=== PATIENT | male | born 2000 | race African-American/Black ===

== ENCOUNTER 2023-04-24 21:46 | Inpatient (IN) | payer MEDICAID, OTHER ==
[~2023-04-24] VITALS: Ht 165.1 cm; Wt 67.8 kg
[2023-04-24] MEDS: POTASSIUM CHL 20MEQ/100ML 100 ML IV ONE (01:30)
[2023-04-24 22:40] VITALS: PULSE 80; RESP 16; O2SAT 98
[2023-04-24] MEDS: ONDANSETRON HCL 4 MG/2 ML VIAL IV ONE (23:00)
[2023-04-24] MEDS: PANTOPRAZOLE 80 MG in SODIUM CHL 0.9% 100 ML IV ONE (23:00)
[2023-04-24] MEDS: PANTOPRAZOLE 40mg/50ML NS AE 50 ML IV ONE (23:00)
[2023-04-24] MEDS: PANTOPRAZOLE 40 MG/10 ML VIAL INJ IV ONE (23:01)
[2023-04-24] MEDS: SODIUM CHLORIDE 0.9% 2,150 ML IV ONE (23:01)
[2023-04-24 23:15] LABS: Basophils # (auto) 0 10 ^3/uL (0-0.2); Basophils % (auto) 0.1 % (0.0-2.0); Eosinophils # (auto) 0 10 ^3/uL (0-0.8); Eosinophils % (auto) 0.1 % (0.0-7.0); Hematocrit 44.1 % (41.0-53.0); Hemoglobin 15.8 g/dL (13.5-17.5); Lymphocytes # (auto) 0.7 10 ^3/uL (0.4-5.4); Lymphocytes % (auto) 3.7 % (10.0-50.0); Mean Corpuscular Hemoglobin 29.3 pg (28.0-32.0); Mean Corpuscular Hgb Conc. 35.9 g/dL (32.0-36.0); Mean Corpuscular Volume 81.7 fL (80.0-100.0); Monocytes # (auto) 0.8 10 ^3/uL (0-1.3); Monocytes % (auto) 4.4 % (0.0-12.0); Neutrophils # (auto) 16.6 10 ^3/uL (1.6-8.6); Neutrophils % (auto) 91.7 % (37.0-80.0); Red Cell Distribution Width 13.8 % (11.8-14.3); White Blood Cell 18.1 10^3/uL (4.4-10.8)
[2023-04-24 23:28] LABS: Alanine Aminotransferase 83 U/L (7-40); Albumin 4.5 g/dL (3.2-4.8); Alkaline Phosphatase 91 U/L (46-116); Anion Gap 19.00001 (5-15); Aspartate Aminotransferase 188 U/L (13-40); Bilirubin, Total 1.3 mg/dL (0.2-1.0); Calcium 8.8 mg/dL (8.7-10.4); Carbon Dioxide 38 mmol/L (20-30); Chloride < 50 mmol/L (98-107); Glucose 119 mg/dL (74-106); Lipase 40 U/L (12-53); Magnesium 2.9 mg/dL (1.6-2.6); Potassium 3.2 mmol/L (3.5-5.1)
[2023-04-24 23:36] LABS: BUN/Creatinine Ratio 34.3 (10.0-20.0)
[2023-04-24 23:39] LABS: Blood Urea Nitrogen 191 mg/dL (9-23); Sodium 107 mmol/L (136-145)
[2023-04-24 23:40] LABS: Creatine Kinase IFCC 8038 U/L (46-171)
[2023-04-24] MEDS ORDERED: VANCOMYCIN PER PHARMACY 0 MG IV SCH (23:45)
[2023-04-24 23:53] LABS: Blood Alcohol < 3.0 mg/dL (<10)
[2023-04-25] MEDS: SODIUM CHLORIDE 0.9% 2,150 ML IV ONE (00:10)
[2023-04-25 00:47] LABS: Base Excess 12.4 mmol/L (-2.0-2.0)
[2023-04-25] MEDS: SODIUM CHL 3% 500 ML IV ONE (01:08)
[2023-04-25] MEDS: PIPERACILLIN-TAZOB 3.375GM 100 ML IV ONE (01:08)
[2023-04-25 01:10] LABS: INR 1.02 (0.9-1.15); Prothrombin Time 10.9 sec (9.3-11.8)
[2023-04-25 01:29] LABS: Urine Epithelial Cast None Seen /hpf (<5)
[2023-04-25 01:50] LABS: Amphetamine Screen, Urine Neg (NEGATIVE); Barbiturate Scree,Urine Neg (NEGATIVE); Benzodiazephine Screen, Urine Neg (NEGATIVE); Cocaine Screen, Urine Neg (NEGATIVE)
[2023-04-25 01:51] LABS: Cannabinoid Screen, Urine Pos (NEGATIVE); Opiate Scree,Urine Neg (NEGATIVE); Phencyclidine Screen, Urine Neg (NEGATIVE)
[2023-04-25] MEDS: SODIUM BICARB 8.4% 50Meq/50ml SYR Vial IV ONE (02:05)
[2023-04-25] MEDS: IOHEXOL 350 MG/ML 100ML IJ ONE (02:06)
[2023-04-25 02:31] LABS: Urine Bacteria NONE SEEN /hpf (None Seen); Urine Blood 3+ /uL (Negative); Urine Clarity Clear (Clear); Urine Color Yellow (Yellow); Urine Hyaline Cast FEW /lpf (0 - 2); Urine Protein, UAD 1+ (Negative); Urine Urobilinogen Normal (Negative); Urine WBC 4 /hpf (0 - 3); Urine pH 5.5 (5.0-8.0)
[2023-04-25 03:05] LABS: Lactic Acid w/Reflex 3.2 mmol/L (0.4-2.0)
[2023-04-25] MEDS: VANCOMYCIN 1GM/200ML 200 ML IV SCH (04:08)
[2023-04-25] MEDS: metroNIDAZOLE 500MG/100ML 100 ML IV ONE (06:51)
[2023-04-25 07:56] LABS: Alanine Aminotransferase 63 U/L (7-40); Albumin 3.2 g/dL (3.2-4.8); Alkaline Phosphatase 63 U/L (46-116); Anion Gap 15 (5-15); Aspartate Aminotransferase 140 U/L (13-40); Calcium 7.5 mg/dL (8.5-10.1); Carbon Dioxide 36 mmol/L (20-30); Glucose 67 mg/dL (74-106); Potassium 3.6 mmol/L (3.5-5.1)
[2023-04-25 07:57] LABS: Bilirubin, Total 1.1 mg/dL (0.2-1.0); Total Protein 4.8 g/dL (5.7-8.2)
[2023-04-25 08:04] LABS: BUN/Creatinine Ratio 36.1 (10.0-20.0)
[2023-04-25 08:23] LABS: Blood Urea Nitrogen 172 mg/dL (9-23); Chloride 65 mmol/L (98-107); Sodium 116 mmol/L (136-145)
[2023-04-25 12:24] LABS: Hematocrit 37.1 % (41.0-53.0); Mean Corpuscular Hemoglobin 29.3 pg (28.0-32.0); Mean Corpuscular Hgb Conc. 34.9 g/dL (32.0-36.0); Mean Corpuscular Volume 83.9 fL (80.0-100.0); Red Blood Cells 4.42 10^6/uL (4.5-5.90); White Blood Cell 15.9 10^3/uL (4.4-10.8)
[2023-04-25 12:39] LABS: Basophils % (manual) 0 (0.0-2.0); Blast Cells 0; Eosinophils % (manual) 0 (0-7); Metamyelocytes % 0; Myelocytes % 0; Promyelocytes % 0; Reactive Lymphocytes 0
[2023-04-25 12:58] LABS: Alanine Aminotransferase 63 U/L (7-40); Albumin 3.5 g/dL (3.2-4.8); Alkaline Phosphatase 67 U/L (46-116); Anion Gap 18 (5-15); Aspartate Aminotransferase 137 U/L (13-40); BUN/Creatinine Ratio 29.3 (10.0-20.0); Bilirubin, Total 1.1 mg/dL (0.2-1.0); Calcium 7.6 mg/dL (8.7-10.4); Carbon Dioxide 32 mmol/L (20-30); Chloride 67 mmol/L (98-107); Glucose 77 mg/dL (74-106); Potassium 3.5 mmol/L (3.5-5.1); Total Protein 5.6 g/dL (5.7-8.2)
[2023-04-25 13:18] LABS: Blood Urea Nitrogen 134 mg/dL (9-23)
[2023-04-25 13:19] LABS: Sodium 117 mmol/L (136-145)
[2023-04-25 13:21] LABS: Band Neutrophils % (manual) 6; Lymphocytes % (manual) 2 (10.0-50.0); Monocytes % (manual) 3 (0-12); Platelet Estimate Adequate; RBC Morphology Normal
[2023-04-25] MEDS ORDERED: MORPHINE SULFATE INJ 2 MG/ml SYRG IV PRN (18:15)
[2023-04-25] MEDS ORDERED: NITROGLYCERIN 0.4 MG SL TAB SL PRN (18:15)
[2023-04-25 19:22] LABS: Hemoglobin 13.1 g/dL (13.5-17.5)
[2023-04-25] MEDS: OMNIPAQUE 12mg/ml 500ml ORAL SOLUTION PO ONE (19:23)
[2023-04-25 19:25] LABS: Hematocrit 37.5 % (41.0-53.0); Mean Corpuscular Hemoglobin 29.5 pg (28.0-32.0); Mean Corpuscular Volume 84.5 fL (80.0-100.0); Red Blood Cells 4.44 10^6/uL (4.5-5.90); Red Cell Distribution Width 14.1 % (11.8-14.3)
[2023-04-25 19:34] LABS: Potassium 3.1 mmol/L (3.5-5.1)
[2023-04-25 19:35] LABS: Anion Gap 14 (5-15); Calcium 8.3 mg/dL (8.7-10.4); Carbon Dioxide 34 mmol/L (20-30)
[2023-04-25 19:39] LABS: Basophils % (manual) 0 (0.0-2.0); Blast Cells 0; Eosinophils % (manual) 0 (0-7); Lymphocytes % (manual) 0 (10.0-50.0); Metamyelocytes % 0; Myelocytes % 0; Promyelocytes % 0; Reactive Lymphocytes 0; White Blood Cell 31.4 10^3/uL (4.4-10.8)
[2023-04-25 19:40] LABS: BUN/Creatinine Ratio 29.6 (10.0-20.0); Glucose 72 mg/dL (74-106)
[2023-04-25 19:49] LABS: Chloride 77 mmol/L (98-107); Sodium 125 mmol/L (136-145)
[2023-04-25 19:51] LABS: Blood Urea Nitrogen 111 mg/dL (9-23)
[2023-04-25 19:52] LABS: Band Neutrophils % (manual) 6; Monocytes % (manual) 6 (0-12)
[2023-04-25 19:53] LABS: Creatine Kinase IFCC 3412 U/L (46-171); Platelet Estimate Adequate
[2023-04-25] MEDS ORDERED: LORazepam 2MG/ML-1ML VIAL IV PRN (20:00)
[2023-04-25] MEDS: PANTOPRAZOLE 40 MG/10 ML VIAL INJ IV ONE (20:17)
[2023-04-25] MEDS ORDERED: DEXTROSE (50%) 50ML SYRG IV PRN (20:30)
[2023-04-25 20:53] LABS: Triglycerides 85 mg/dL (< 150)
[2023-04-25 20:54] LABS: LDL Cholesterol 25 mg/dL (< 100)
[2023-04-25 20:55] LABS: Cholesterol 77 mg/dL (< 200); HDL Cholesterol 31 mg/dL (40-59)
[2023-04-25 21:10] VITALS: PULSE 109; RESP 14; O2SAT 97
[2023-04-25] MEDS: D5W 5% 1,000 ML IV ONE (21:43)
[2023-04-25] MEDS ORDERED: MEROPENEM 1 GM in SODIUM CHL 0.9% 100 ML IV SCH (22:00)
[2023-04-25] MEDS: POTASSIUM CHL 20MEQ/100ML 100 ML IV ONE (22:02)
[2023-04-25] MEDS: DESMOPRESSIN ACET 4 MCG/1 ML AMPULE SUBCUT SCH (22:07)
[2023-04-25] MEDS: DESMOPRESSIN ACET 4 MCG/1 ML AMPULE ONE (22:07)
[2023-04-25] MEDS: LINEZOLID 600MG/300ML 300 ML IV SCH (22:41)
[2023-04-25 23:04] LABS: Chloride 77 mmol/L (98-107); Potassium 2.8 mmol/L (3.5-5.1); Sodium 124 mmol/L (136-145)
[2023-04-25 23:05] LABS: Anion Gap 13 (5-15); Calcium 8.5 mg/dL (8.7-10.4); Carbon Dioxide 34 mmol/L (20-30)
[2023-04-25] MEDS: MEROPENEM 1GM IVPB 100 ML IV SCH (23:09)
[2023-04-25 23:10] LABS: BUN/Creatinine Ratio 31.8 (10.0-20.0); Glucose 117 mg/dL (74-106)
[2023-04-25 23:24] LABS: Blood Urea Nitrogen 105 mg/dL (9-23)
[2023-04-26] MEDS: ACCU-CHEK COMFORT CURVE STRIP VI SCH (00:15)
[2023-04-26] MEDS: InsuLIN REG 1unit/0.01ml Soln (100units/ml) SC SCH (00:20)
[2023-04-26 02:37] LABS: Chloride 78 mmol/L (98-107); Potassium 2.9 mmol/L (3.5-5.1); Sodium 124 mmol/L (136-145)
[2023-04-26 02:38] LABS: Anion Gap 11 (5-15); Calcium 8.4 mg/dL (8.7-10.4); Carbon Dioxide 35 mmol/L (20-30)
[2023-04-26 02:43] LABS: BUN/Creatinine Ratio 36.9 (10.0-20.0); Glucose 102 mg/dL (74-106)
[2023-04-26 03:32] LABS: Blood Urea Nitrogen 110 mg/dL (9-23)
[2023-04-26 07:03] LABS: Potassium 2.7 mmol/L (3.5-5.1)
[2023-04-26 07:05] LABS: Calcium 8.7 mg/dL (8.5-10.1)
[2023-04-26 07:09] LABS: BUN/Creatinine Ratio 48.7 (10.0-20.0)
[2023-04-26 07:11] LABS: Albumin 3.6 g/dL (3.2-4.8)
[2023-04-26 07:12] LABS: Phosphorus 6.3 mg/dL (2.4-5.1)
[2023-04-26] MEDS: D5W 5% 1,000 ML IV ONE (09:15)
[2023-04-26] MEDS: DESMOPRESSIN ACET 4 MCG/1 ML AMPULE SUBCUT SCH ×2 (09:30→21:00)
[2023-04-26] MEDS ORDERED: POTASSIUM CHL 20MEQ/100ML 100 ML IV SCH (09:45)
[2023-04-26] MEDS ORDERED: MEROPENEM 1 GM in SODIUM CHL 0.9% 100 ML IV SCH (10:00)
[2023-04-26] MEDS: PANTOPRAZOLE 40 MG/10 ML VIAL INJ IV SCH (10:26)
[2023-04-26] MEDS: D5W 5% 1,000 ML IV SCH ×2 (10:27→17:15)
[2023-04-26 10:37] LABS: Chloride 80 mmol/L (98-107); Potassium 2.8 mmol/L (3.5-5.1); Sodium 128 mmol/L (136-145)
[2023-04-26 10:38] LABS: Anion Gap 12 (5-15); Carbon Dioxide 36 mmol/L (20-30)
[2023-04-26 10:39] LABS: Calcium 9.1 mg/dL (8.5-10.1)
[2023-04-26 10:43] LABS: Glucose 81 mg/dL (74-106)
[2023-04-26 10:44] LABS: BUN/Creatinine Ratio 38.9 (10.0-20.0); Blood Urea Nitrogen 93 mg/dL (9-23)
[2023-04-26 11:11] VITALS: PULSE 94; RESP 14; O2SAT 97
[2023-04-26] MEDS: DESMOPRESSIN ACET 4 MCG/1 ML AMPULE SUBCUT ONE (13:58)
[2023-04-26] MEDS: POTASSIUM CHL 20MEQ/100ML 100 ML IV SCH ×2 (13:59→21:33)
[2023-04-26 14:57] LABS: Chloride 83 mmol/L (98-107); Potassium 2.7 mmol/L (3.5-5.1); Sodium 128 mmol/L (136-145)
[2023-04-26 14:58] LABS: Anion Gap 7 (5-15); Calcium 8.9 mg/dL (8.5-10.1); Carbon Dioxide 38 mmol/L (20-30)
[2023-04-26 15:03] LABS: BUN/Creatinine Ratio 36.9 (10.0-20.0); Glucose 120 mg/dL (74-106)
[2023-04-26 15:17] LABS: Blood Urea Nitrogen 82 mg/dL (9-23)
[2023-04-26] MEDS: POTASSIUM EFFERVESENT TAB 25 MEQ GT ONE (17:14)
[2023-04-26 19:21] LABS: Anion Gap 8 (5-15); Carbon Dioxide 36 mmol/L (20-30); Chloride 87 mmol/L (98-107); Potassium 2.9 mmol/L (3.5-5.1); Sodium 131 mmol/L (136-145)
[2023-04-26 19:22] LABS: Calcium 8.8 mg/dL (8.5-10.1)
[2023-04-26 19:27] LABS: BUN/Creatinine Ratio 39.9 (10.0-20.0); Blood Urea Nitrogen 77 mg/dL (9-23); Glucose 111 mg/dL (74-106)
[2023-04-26 19:45] VITALS: PULSE 96; RESP 19; O2SAT 96
[2023-04-26] MEDS: MEROPENEM 1GM IVPB 100 ML IV SCH (22:00)
[2023-04-26 22:32] LABS: Basophils # (auto) 0 10 ^3/uL (0-0.2); Basophils % (auto) 0.1 % (0.0-2.0); Eosinophils # (auto) 0 10 ^3/uL (0-0.8); Eosinophils % (auto) 0.1 % (0.0-7.0); Hematocrit 29.1 % (41.0-53.0); Hemoglobin 9.9 g/dL (13.5-17.5); Lymphocytes # (auto) 0.4 10 ^3/uL (0.4-5.4); Lymphocytes % (auto) 2.1 % (10.0-50.0); Mean Corpuscular Hemoglobin 29.4 pg (28.0-32.0); Mean Corpuscular Hgb Conc. 34.1 g/dL (32.0-36.0); Monocytes # (auto) 0.6 10 ^3/uL (0-1.3); Monocytes % (auto) 3.6 % (0.0-12.0); Neutrophils # (auto) 16.7 10 ^3/uL (1.6-8.6); Neutrophils % (auto) 94.1 % (37.0-80.0); Red Blood Cells 3.38 10^6/uL (4.5-5.90); White Blood Cell 17.7 10^3/uL (4.4-10.8)
[2023-04-26 22:39] LABS: Chloride 91 mmol/L (98-107); Potassium 3.1 mmol/L (3.5-5.1); Sodium 132 mmol/L (136-145)
[2023-04-26 22:40] LABS: Anion Gap 6 (5-15); Carbon Dioxide 35 mmol/L (20-30)
[2023-04-26 22:41] LABS: Calcium 8.3 mg/dL (8.7-10.4)
[2023-04-26 22:46] LABS: Blood Urea Nitrogen 68 mg/dL (9-23); Glucose 99 mg/dL (74-106)
[2023-04-27 07:18] LABS: Anion Gap 4 (5-15); Calcium 8.3 mg/dL (8.7-10.4); Carbon Dioxide 33 mmol/L (20-30); Chloride 97 mmol/L (98-107); Potassium 3.5 mmol/L (3.5-5.1); Sodium 134 mmol/L (136-145)
[2023-04-27 07:24] LABS: Glucose 72 mg/dL (74-106)
[2023-04-27 07:25] LABS: Blood Urea Nitrogen 57 mg/dL (9-23)
[2023-04-27 07:38] LABS: Basophils # (auto) 0 10 ^3/uL (0-0.2); Basophils % (auto) 0.2 % (0.0-2.0); Eosinophils # (auto) 0 10 ^3/uL (0-0.8); Eosinophils % (auto) 0.2 % (0.0-7.0); Hematocrit 28.3 % (41.0-53.0); Hemoglobin 9.7 g/dL (13.5-17.5); Lymphocytes # (auto) 0.5 10 ^3/uL (0.4-5.4); Lymphocytes % (auto) 2.8 % (10.0-50.0); Mean Corpuscular Hgb Conc. 34.4 g/dL (32.0-36.0); Mean Corpuscular Volume 87.3 fL (80.0-100.0); Monocytes # (auto) 0.8 10 ^3/uL (0-1.3); Monocytes % (auto) 4.2 % (0.0-12.0); Neutrophils # (auto) 16.7 10 ^3/uL (1.6-8.6); Neutrophils % (auto) 92.6 % (37.0-80.0); Red Blood Cells 3.25 10^6/uL (4.5-5.90); Red Cell Distribution Width 14.1 % (11.8-14.3)
[2023-04-27] MEDS: ACETAMINOPHEN 325 MG TAB PO ONE (09:52)
[2023-04-27] MEDS: DESMOPRESSIN ACET 4 MCG/1 ML AMPULE SUBCUT SCH (11:11)
[2023-04-27 20:00] VITALS: BP 135/84; PULSE 89; RESP 18; TEMP 97.5
[2023-04-27 21:22] VITALS: PULSE 92; RESP 17; O2SAT 98
[2023-04-28 05:16] LABS: Basophils # (auto) 0 10 ^3/uL (0-0.2); Basophils % (auto) 0.1 % (0.0-2.0); Eosinophils # (auto) 0.3 10 ^3/uL (0-0.8); Eosinophils % (auto) 1.6 % (0.0-7.0); Hematocrit 25.7 % (41.0-53.0); Hemoglobin 8.8 g/dL (13.5-17.5); Lymphocytes # (auto) 0.8 10 ^3/uL (0.4-5.4); Lymphocytes % (auto) 4.1 % (10.0-50.0); Mean Corpuscular Hemoglobin 29.9 pg (28.0-32.0); Mean Corpuscular Hgb Conc. 34.4 g/dL (32.0-36.0); Monocytes # (auto) 1.1 10 ^3/uL (0-1.3); Monocytes % (auto) 5.3 % (0.0-12.0); Neutrophils % (auto) 88.9 % (37.0-80.0); Red Blood Cells 2.96 10^6/uL (4.5-5.90); Red Cell Distribution Width 14.2 % (11.8-14.3); White Blood Cell 20.2 10^3/uL (4.4-10.8)
[2023-04-28 05:51] LABS: Anion Gap 5 (5-15); Carbon Dioxide 30 mmol/L (20-30); Chloride 91 mmol/L (98-107); Sodium 126 mmol/L (136-145)
[2023-04-28 05:52] LABS: Calcium 8.1 mg/dL (8.7-10.4)
[2023-04-28 05:57] LABS: BUN/Creatinine Ratio 23.4 (10.0-20.0); Glucose 113 mg/dL (74-106)
[2023-04-28 06:31] LABS: Blood Urea Nitrogen 26 mg/dL (9-23)
[2023-04-28 08:11] VITALS: PULSE 96; RESP 23; O2SAT 100
[2023-04-28 09:50] VITALS: BP 130/58; PULSE 96; RESP 18; TEMP 100.3; O2SAT 94
[2023-04-28] MEDS ORDERED: THIAMINE 100mg/ml INJ (200mg/2ml VIAL) IV ONE (10:30)
[2023-04-28 11:04] LABS: Phosphorus 1.3 mg/dL (2.4-5.1)
[2023-04-28 11:40] LABS: Magnesium 1.1 mg/dL (1.6-2.6)
[2023-04-28] MEDS: POTASSIUM CHL 20MEQ/100ML 100 ML IV SCH (12:02)
[2023-04-28] MEDS: FLUCONAZOLE 200MG/100ML 100 ML IV SCH (12:13)
[2023-04-28 12:39] LABS: Urine Epithelial Cast None Seen /hpf (<5)
[2023-04-28 13:03] LABS: Protein, Urine 70.4 mg/dL (0.0-11.9)
[2023-04-28 13:05] LABS: Urine Bacteria NONE SEEN /hpf (None Seen); Urine Blood Negative /uL (Negative); Urine Clarity Clear (Clear); Urine Color Colorless (Yellow); Urine Protein, UAD 1+ (Negative); Urine Specific Gravity 1.013 (1.001-1.035); Urine Urobilinogen Normal (Negative); Urine WBC 4 /hpf (0 - 3); Urine pH 7.5 (5.0-8.0)
[2023-04-28 13:06] LABS: Creatinine, Urine 80.43 mg/dL (30.0-125.0); Urine Protein/Creatinine Ratio 0.88
[2023-04-28 13:09] LABS: Rapid Influenza A Negative (Negative); Rapid Influenza B Negative (Negative)
[2023-04-28 13:10] LABS: COVID19 ANTIGEN SOFIA FIA NEGATIVE (NEGATIVE)
[2023-04-28] MEDS ORDERED: GASTROGRAFIN 120 ML SOL ONE (14:14)
[2023-04-28] MEDS ORDERED: EZ-GAS II GRANULES (RADIOLOGY USE) PO ONE (14:19)
[2023-04-28 14:20] LABS: Chloride 93 mmol/L (98-107); Potassium 3.3 mmol/L (3.5-5.1); Sodium 127 mmol/L (136-145)
[2023-04-28 14:21] LABS: Anion Gap 4 (5-15); Calcium 8.2 mg/dL (8.5-10.1); Carbon Dioxide 30 mmol/L (20-30)
[2023-04-28 14:26] LABS: BUN/Creatinine Ratio 22.1 (10.0-20.0); Blood Urea Nitrogen 21 mg/dL (9-23); Glucose 83 mg/dL (74-106)
[2023-04-28 17:00] VITALS: BP 126/68; PULSE 91; RESP 19; TEMP 100.2; O2SAT 100
[2023-04-28] MEDS: ACETAMINOPHEN 325 MG TAB PO PRN (17:23)
[2023-04-28] MEDS: MAGNESIUM SULFATE 1GM/100ML 100 ML IV SCH (18:27)
[2023-04-28] MEDS: POTASSIUM EFFERVESENT TAB 25 MEQ PO ONE (18:51)
[2023-04-28] MEDS: ONDANSETRON HCL 4 MG/2 ML VIAL IV PRN (18:51)
[2023-04-28 20:00] VITALS: BP 135/84; PULSE 68; PULSE 89; RESP 18; TEMP 97.5; O2SAT 100
[2023-04-28 22:00] VITALS: BP 135/84; PULSE 89; RESP 18; TEMP 97.5; O2SAT 100
[2023-04-28 22:42] LABS: Magnesium 1.7 mg/dL (1.6-2.6)
[2023-04-28 22:43] LABS: Potassium 3.5 mmol/L (3.5-5.1)
[2023-04-29] VITALS (7 sets, daily range): BP systolic 124–142; BP diastolic 70–94; PULSE 92–111; RESP 17–19; TEMP 98–99.6; O2SAT 97–100
[2023-04-29] MEDS: POTASSIUM EFFERVESENT TAB 25 MEQ PO ONE ×2 (02:28→10:18)
[2023-04-29] MEDS: MAGNESIUM SULFATE 1GM/100ML 100 ML IV ONE (02:28)
[2023-04-29 06:53] LABS: Hematocrit 27.5 % (41.0-53.0); Hemoglobin 9.4 g/dL (13.5-17.5); Mean Corpuscular Hemoglobin 29.6 pg (28.0-32.0); Mean Corpuscular Hgb Conc. 34.3 g/dL (32.0-36.0); Mean Corpuscular Volume 86.5 fL (80.0-100.0); Red Blood Cells 3.18 10^6/uL (4.5-5.90); Red Cell Distribution Width 14.2 % (11.8-14.3); White Blood Cell 16.3 10^3/uL (4.4-10.8)
[2023-04-29 07:05] LABS: Alanine Aminotransferase 48 U/L (7-40); Albumin 3.2 g/dL (3.2-4.8); Alkaline Phosphatase 96 U/L (46-116); Anion Gap 6 (5-15); Aspartate Aminotransferase 41 U/L (13-40); BUN/Creatinine Ratio 13.5 (10.0-20.0); Bilirubin, Total 0.5 mg/dL (0.2-1.0); Blood Urea Nitrogen 13 mg/dL (9-23); Calcium 8.2 mg/dL (8.7-10.4); Carbon Dioxide 28 mmol/L (20-30); Chloride 96 mmol/L (98-107); Glucose 86 mg/dL (74-106); Magnesium 2.1 mg/dL (1.6-2.6); Phosphorus 1.1 mg/dL (2.4-5.1); Potassium 3.2 mmol/L (3.5-5.1); Sodium 130 mmol/L (136-145)
[2023-04-29 07:06] LABS: Total Protein 5.3 g/dL (5.7-8.2)
[2023-04-29 07:24] LABS: Basophils % (manual) 0 (0.0-2.0); Blast Cells 0; Promyelocytes % 0; Reactive Lymphocytes 0
[2023-04-29 08:47] LABS: Band Neutrophils % (manual) 4; Eosinophils % (manual) 5 (0-7); Lymphocytes % (manual) 7 (10.0-50.0); Metamyelocytes % 2; Monocytes % (manual) 7 (0-12); Myelocytes % 1
[2023-04-29 08:48] LABS: Platelet Estimate Adequate
[2023-04-29] MEDS: ENOXAPARIN SOD 40 MG/0.4 ML SYRINGE SC SCH (10:00)
[2023-04-29] MEDS: POTASSIUM PHOSPHATE 22 MEQ in SODIUM CHL 0.9% 100 ML IV ONE (13:55)
[2023-04-30 05:32] VITALS: BP 145/96; PULSE 89; RESP 18; TEMP 98; O2SAT 100
[2023-04-30 06:51] LABS: Basophils # (auto) 0 10 ^3/uL (0-0.2); Basophils % (auto) 0.1 % (0.0-2.0); Eosinophils # (auto) 0.1 10 ^3/uL (0-0.8); Eosinophils % (auto) 0.7 % (0.0-7.0); Hematocrit 31.3 % (41.0-53.0); Hemoglobin 10.4 g/dL (13.5-17.5); Lymphocytes # (auto) 1.5 10 ^3/uL (0.4-5.4); Mean Corpuscular Hemoglobin 29.2 pg (28.0-32.0); Mean Corpuscular Hgb Conc. 33.4 g/dL (32.0-36.0); Mean Corpuscular Volume 87.4 fL (80.0-100.0); Monocytes # (auto) 0.8 10 ^3/uL (0-1.3); Monocytes % (auto) 4.7 % (0.0-12.0); Neutrophils # (auto) 14.3 10 ^3/uL (1.6-8.6); Neutrophils % (auto) 85.5 % (37.0-80.0); Red Blood Cells 3.58 10^6/uL (4.5-5.90); Red Cell Distribution Width 14.5 % (11.8-14.3); White Blood Cell 16.8 10^3/uL (4.4-10.8)
[2023-04-30 07:08] LABS: Potassium 3.9 mmol/L (3.5-5.1); Sodium 141 mmol/L (136-145)
[2023-04-30 07:09] LABS: Anion Gap 8 (5-15); Carbon Dioxide 26 mmol/L (20-30)
[2023-04-30 07:14] LABS: BUN/Creatinine Ratio 10.7 (10.0-20.0); Blood Urea Nitrogen 9 mg/dL (9-23); Glucose 86 mg/dL (74-106)
[2023-04-30 07:15] LABS: Magnesium 1.8 mg/dL (1.6-2.6)
[2023-04-30 07:16] LABS: Phosphorus 1.3 mg/dL (2.4-5.1)
[2023-04-30 07:17] LABS: Chloride 107 mmol/L (98-107)
[2023-04-30 08:00] VITALS: PULSE 107; PULSE 92; RESP 17; O2SAT 100
[2023-04-30] MEDS: MEROPENEM 1GM IVPB 100 ML IV SCH (10:00)
== END 2023-04-30 09:00 | disposition left against medical advice (07) | DRG 423 ==
LOC: ER 21:46 → EDBD 21:46 → TELE 04-25 18:18 → TELE-CENTR 04-25 18:18
PROVIDERS: ADMIT Internal Medicine; ATTEND Internal Medicine
DX: E83.39 Other disorders of phosphorus metabolism (principal); N17.0 Acute kidney failure with tubular necrosis; K22.3 Perforation of esophagus; J69.0 Pneumonitis due to inhalation of food and vomit; G93.41 Metabolic encephalopathy; K92.2 Gastrointestinal hemorrhage, unspecified; J98.2 Interstitial emphysema; M62.82 Rhabdomyolysis; E87.1 Hypo-osmolality and hyponatremia; E83.42 Hypomagnesemia; E87.6 Hypokalemia; E86.0 Dehydration; K44.9 Diaphragmatic hernia without obstruction or gangrene; R74.8 Abnormal levels of other serum enzymes; Z53.29 Procedure and treatment not carried out because of patient's decision for other reasons; F12.90 Cannabis use, unspecified, uncomplicated; Z20.822 Contact with and (suspected) exposure to COVID-19
CPT/HCPCS: 36415; 36600; 70450; 70551; 71045; 71250; 71260; 72125; 74018; 74177; 74246; 80048; 80053; 80061; 80069; 80202; 80307; 80320; 81001; 82140; 82550; 82570; 82805; 82962; 83605; 83690; 83735; 83930; 83935; 84100; 84132; 84156; 84295; 84300; 84484; 85007; 85025; 85027; 85379; 85610; 85730; 86703; 86706; 86803; 86850; 86900; 86901; 87040; 87086; 87426; 87804; 93005; 96365; 96379; 99291; C9113; G0378; J1450; J1815; J2185; J2405; J2543; J3480; J3490

== ENCOUNTER 2023-07-04 06:32 | Emergency (ER) | payer MEDICAID ==
[~2023-07-04] VITALS: Ht 170.2 cm; Wt 60.0 kg
[2023-07-04 06:32] VITALS: BP 134/99; PULSE 96; RESP 16; O2SAT 98
[2023-07-04 07:01] LABS: Basophils # (auto) 0 10 ^3/uL (0-0.2); Eosinophils # (auto) 0 10 ^3/uL (0-0.8)
[2023-07-04 07:02] LABS: Basophils % (auto) 0.2 % (0.0-2.0); Hematocrit 52.8 % (41.0-53.0); Lymphocytes # (auto) 0.4 10 ^3/uL (0.4-5.4); Lymphocytes % (auto) 1.8 % (10.0-50.0); Mean Corpuscular Hemoglobin 28.8 pg (28.0-32.0); Mean Corpuscular Hgb Conc. 34.2 g/dL (32.0-36.0); Mean Corpuscular Volume 84.2 fL (80.0-100.0); Monocytes # (auto) 1.5 10 ^3/uL (0-1.3); Monocytes % (auto) 6.9 % (0.0-12.0); Neutrophils # (auto) 19.2 10 ^3/uL (1.6-8.6); Neutrophils % (auto) 91.1 % (37.0-80.0); Nucleated Red Blood Cells % 0.7 %; Red Blood Cells 6.27 10^6/uL (4.5-5.90); White Blood Cell 21.1 10^3/uL (4.4-10.8)
[2023-07-04 07:11] LABS: Chloride 65 mmol/L (98-107); Potassium 3.2 mmol/L (3.5-5.1); Sodium 133 mmol/L (136-145)
[2023-07-04 07:12] LABS: Anion Gap 34 (5-15); Calcium 10.2 mg/dL (8.5-10.1); Carbon Dioxide 34 mmol/L (20-30)
[2023-07-04 07:17] LABS: Glucose 130 mg/dL (74-106)
[2023-07-04 07:30] LABS: BUN/Creatinine Ratio 10.1 (10.0-20.0); Blood Urea Nitrogen 153 mg/dL (9-23)
[2023-07-04] MEDS: PROCHLORPERAZINE EDISYLATE 5 MG/ML 2ML VIAL IV ONE (07:50)
[2023-07-04] MEDS: SODIUM CHLORIDE 0.9% 1,000 ML IV ONE ×2 (07:50)
[2023-07-04 08:14] LABS: Chloride 64 mmol/L (98-107); Potassium 3.2 mmol/L (3.5-5.1); Sodium 132 mmol/L (136-145)
[2023-07-04 08:15] LABS: Anion Gap 34 (5-15); Calcium 10.3 mg/dL (8.5-10.1); Carbon Dioxide 34 mmol/L (20-30)
[2023-07-04 08:20] LABS: BUN/Creatinine Ratio 7.8 (10.0-20.0); Glucose 119 mg/dL (74-106)
[2023-07-04 08:39] LABS: Blood Urea Nitrogen 120 mg/dL (9-23)
== END 2023-07-04 10:17 | disposition left against medical advice (07) ==
LOC: ER 06:32 → EDBD 06:32 → ER 10:17
DX: N17.0 Acute kidney failure with tubular necrosis (principal); F12.10 Cannabis abuse, uncomplicated
CPT/HCPCS: 36415; 80048; 85025; 96361; 96374; 99283; J0780; J7030

== ENCOUNTER 2023-07-10 11:14 | Inpatient (IN) | payer MEDICAID ==
[~2023-07-10] VITALS: Ht 170.2 cm; Wt 58.8 kg
[2023-07-10 12:18] LABS: Chloride 66 mmol/L (98-107); Potassium 2.7 mmol/L (3.5-5.1)
[2023-07-10 12:24] LABS: Amphetamine Screen, Urine Neg (NEGATIVE); Barbiturate Scree,Urine Neg (NEGATIVE); Benzodiazephine Screen, Urine Neg (NEGATIVE)
[2023-07-10 12:24] LABS: BUN/Creatinine Ratio 28.8 (10.0-20.0); Glucose 108 mg/dL (74-106); Lipase 85 U/L (12-53)
[2023-07-10 12:25] LABS: Cannabinoid Screen, Urine Pos (NEGATIVE); Cocaine Screen, Urine Neg (NEGATIVE); Opiate Scree,Urine Neg (NEGATIVE); Phencyclidine Screen, Urine Neg (NEGATIVE)
[2023-07-10 12:26] LABS: Eosinophils # (auto) 0.1 10 ^3/uL (0-0.8); Hematocrit 52.8 % (41.0-53.0); Lymphocytes # (auto) 0.9 10 ^3/uL (0.4-5.4)
[2023-07-10 12:28] LABS: Anion Gap 18.99999 (5-15); Basophils # (auto) 0 10 ^3/uL (0-0.2); Basophils % (auto) 0.2 % (0.0-2.0); Eosinophils % (auto) 0.3 % (0.0-7.0); Hemoglobin 17.9 g/dL (13.5-17.5); Lymphocytes % (auto) 4.4 % (10.0-50.0); Mean Corpuscular Hemoglobin 28.8 pg (28.0-32.0); Mean Corpuscular Volume 84.9 fL (80.0-100.0); Monocytes # (auto) 1.4 10 ^3/uL (0-1.3); Monocytes % (auto) 6.9 % (0.0-12.0); Neutrophils # (auto) 17.5 10 ^3/uL (1.6-8.6); Neutrophils % (auto) 88.2 % (37.0-80.0); Nucleated Red Blood Cells % 0.7 %; Red Blood Cells 6.22 10^6/uL (4.5-5.90); Red Cell Distribution Width 14.9 % (11.8-14.3); Sodium 125 mmol/L (136-145); White Blood Cell 19.8 10^3/uL (4.4-10.8)
[2023-07-10 12:29] LABS: Carbon Dioxide > 40 mmol/L (20-30)
[2023-07-10 12:30] LABS: Blood Urea Nitrogen 84 mg/dL (9-23)
[2023-07-10] MEDS: SODIUM CHLORIDE 0.9% 1,000 ML IV ONE ×2 (12:59)
[2023-07-10] MEDS: cefTRIAXone 1GM/50ML D5W 50 ML IV ONE (12:59)
[2023-07-10] MEDS: metroNIDAZOLE 500MG/100ML 100 ML IV ONE (13:27)
[2023-07-10 13:36] VITALS: PULSE 88; RESP 15; O2SAT 100
[2023-07-10] MEDS ORDERED: NITROGLYCERIN 0.4 MG SL TAB SL PRN (14:15)
[2023-07-10] MEDS ORDERED: ACETAMINOPHEN 325 MG TAB PO PRN (14:15)
[2023-07-10] MEDS ORDERED: ONDANSETRON HCL 4 MG/2 ML VIAL IV PRN (14:15)
[2023-07-10] MEDS ORDERED: MORPHINE SULFATE INJ 2 MG/ml SYRG IV PRN ×2 (14:15)
[2023-07-10] MEDS ORDERED: HYDROcodone-ACET 5/325MG TAB PO PRN (14:15)
[2023-07-10] MEDS ORDERED: DOCUSATE SOD 100 MG CAP PO PRN (14:15)
[2023-07-10] MEDS: SODIUM CHLORIDE 0.9% 1,000 ML IV SCH (14:15)
[2023-07-10] MEDS ORDERED: SODIUM CHLORIDE 0.9% 1,000 ML IV SCH (14:15)
[2023-07-10 14:40] LABS: Urine Bacteria NONE SEEN /hpf (None Seen); Urine Blood TRACE /uL (Negative); Urine Clarity Clear (Clear); Urine Color Colorless (Yellow); Urine Protein, UAD 1+ (Negative); Urine Specific Gravity 1.012 (1.001-1.035); Urine Urobilinogen Normal (Negative); Urine WBC 3 /hpf (0 - 3)
[2023-07-10 15:03] LABS: Creatinine, Urine 129.42 mg/dL (30.0-125.0)
[2023-07-10] MEDS: PANTOPRAZOLE 40 MG/10 ML VIAL INJ IV ONE (15:08)
[2023-07-10 15:15] LABS: Bilirubin, Total 1.2 mg/dL (0.2-1.0)
[2023-07-10 18:16] LABS: Anion Gap 11 (5-15); Carbon Dioxide 40 mmol/L (20-30)
[2023-07-10 18:17] LABS: Calcium 9.6 mg/dL (8.7-10.4)
[2023-07-10 18:21] LABS: Glucose 92 mg/dL (74-106)
[2023-07-10 18:22] LABS: BUN/Creatinine Ratio 38.6 (10.0-20.0)
[2023-07-10 18:36] LABS: Chloride 79 mmol/L (98-107); Sodium 130 mmol/L (136-145)
[2023-07-10 18:38] LABS: Blood Urea Nitrogen 85 mg/dL (9-23); Potassium 2.3 mmol/L (3.5-5.1)
[2023-07-10] MEDS: POTASSIUM CHL 20MEQ/100ML 100 ML IV SCH (19:15)
[2023-07-10 19:25] VITALS: PULSE 84; RESP 16; O2SAT 93
[2023-07-10 19:59] VITALS: TEMP 97.4
[2023-07-10 22:17] LABS: Chloride 82 mmol/L (98-107); Potassium 2.6 mmol/L (3.5-5.1); Sodium 132 mmol/L (136-145)
[2023-07-10 22:18] LABS: Calcium 9.6 mg/dL (8.5-10.1)
[2023-07-10 22:23] LABS: Glucose 88 mg/dL (74-106)
[2023-07-10 22:26] LABS: Anion Gap 9.99999 (5-15)
[2023-07-10 22:28] LABS: Blood Urea Nitrogen 88 mg/dL (9-23); Carbon Dioxide > 40 mmol/L (20-30)
[2023-07-10] MEDS: metroNIDAZOLE 500MG/100ML 100 ML IV SCH (22:57)
[2023-07-11 01:00] VITALS: BP 150/90; PULSE 99; RESP 13; O2SAT 100
[2023-07-11] MEDS: METOCLOPRAMIDE HCL 5MG/ml INJ 2ml VIAL IV PRN (01:02)
[2023-07-11] MEDS ORDERED: cefTRIAXone 1GM/50ML D5W 50 ML IV SCH (09:00)
[2023-07-11] MEDS ORDERED: PANTOPRAZOLE 40 MG/10 ML VIAL INJ IV SCH (10:00)
== END 2023-07-11 02:03 | disposition left against medical advice (07) | DRG 254 ==
LOC: ER 11:14 → TELE 14:20
PROVIDERS: ADMIT Nurse Practitioner Family; ATTEND Internal Medicine
DX: K62.89 Other specified diseases of anus and rectum (principal); N17.0 Acute kidney failure with tubular necrosis; E87.20 Acidosis, unspecified; E87.1 Hypo-osmolality and hyponatremia; E87.6 Hypokalemia; F12.90 Cannabis use, unspecified, uncomplicated; Z53.29 Procedure and treatment not carried out because of patient's decision for other reasons; Z87.01 Personal history of pneumonia (recurrent)
CPT/HCPCS: 36415; 74176; 76700; 80048; 80307; 81001; 82247; 82570; 83605; 83690; 83930; 83935; 84075; 84300; 84450; 84460; 85025; 87040; 96365; 96367; 99291; C9113; G0378; J3480; J3490

== ENCOUNTER 2023-09-29 12:46 | Inpatient (IN) | payer MEDICAID ==
[~2023-09-29] VITALS: Ht 175.3 cm; Wt 65.4 kg
[2023-09-29 13:05] LABS: Urine Bacteria None Seen /hpf (None Seen)
[2023-09-29 13:23] LABS: Urine Amorphous Crystal FEW /hpf (None Seen); Urine Blood 3+ /uL (Negative); Urine Clarity Clear (Clear); Urine Color Light-Yellow (Yellow); Urine Protein, UAD 1+ (Negative); Urine Specific Gravity 1.014 (1.001-1.035); Urine Urobilinogen Normal (Negative); Urine WBC 2 /hpf (0 - 3)
[2023-09-29 13:24] LABS: Amphetamine Screen, Urine Neg (NEGATIVE); Benzodiazephine Screen, Urine Neg (NEGATIVE)
[2023-09-29 13:25] LABS: Barbiturate Scree,Urine Neg (NEGATIVE); Cannabinoid Screen, Urine Pos (NEGATIVE); Cocaine Screen, Urine Neg (NEGATIVE); Phencyclidine Screen, Urine Neg (NEGATIVE)
[2023-09-29 13:30] LABS: Opiate Scree,Urine Neg (NEGATIVE)
[2023-09-29 15:27] LABS: Basophils # (auto) 0 10 ^3/uL (0-0.2); Basophils % (auto) 0.1 % (0.0-2.0); Eosinophils # (auto) 0 10 ^3/uL (0-0.8); Eosinophils % (auto) 0.1 % (0.0-7.0); Hematocrit 44.2 % (41.0-53.0); Hemoglobin 15.6 g/dL (13.5-17.5); Lymphocytes # (auto) 0.4 10 ^3/uL (0.4-5.4); Lymphocytes % (auto) 3.5 % (10.0-50.0); Mean Corpuscular Hgb Conc. 35.3 g/dL (32.0-36.0); Mean Corpuscular Volume 79.5 fL (80.0-100.0); Monocytes # (auto) 0.8 10 ^3/uL (0-1.3); Monocytes % (auto) 6.9 % (0.0-12.0); Neutrophils # (auto) 10.1 10 ^3/uL (1.6-8.6); Neutrophils % (auto) 89.4 % (37.0-80.0); Red Blood Cells 5.56 10^6/uL (4.5-5.90); Red Cell Distribution Width 15.6 % (11.8-14.3); White Blood Cell 11.3 10^3/uL (4.4-10.8)
[2023-09-29 15:42] LABS: Alanine Aminotransferase 127 U/L (7-40); Albumin 4.9 g/dL (3.2-4.8); Aspartate Aminotransferase 291 U/L (13-40)
[2023-09-29 15:43] LABS: Bilirubin, Total 0.7 mg/dL (0.2-1.0); Total Protein 8.5 g/dL (5.7-8.2)
[2023-09-29 15:46] LABS: Chloride 57 mmol/L (98-107); Potassium 5.3 mmol/L (3.5-5.1)
[2023-09-29 15:48] LABS: Anion Gap 23 (5-15); Carbon Dioxide 28 mmol/L (20-30)
[2023-09-29 15:49] LABS: Calcium 7.2 mg/dL (8.5-10.1)
[2023-09-29 15:53] LABS: Glucose 182 mg/dL (74-106)
[2023-09-29 15:54] LABS: Alkaline Phosphatase 106 U/L (46-116); BUN/Creatinine Ratio 28.2 (10.0-20.0); Magnesium 2.8 mg/dL (1.6-2.6)
[2023-09-29 16:06] LABS: Blood Urea Nitrogen 198 mg/dL (9-23); Sodium 108 mmol/L (136-145)
[2023-09-29] MEDS: SODIUM CHLORIDE 0.9% 1,000 ML IV ONE ×2 (18:27→20:23)
[2023-09-29] MEDS: ALBUTEROL SULF 2.5 MG/0.5ML(0.5%) NEB SOLN NEB ONE (18:30)
[2023-09-29] MEDS: SODIUM ZIRCONIUM CYCL 10 GM PAK PO ONE (18:31)
[2023-09-29] MEDS: cefTRIAXone 1GM/50ML D5W 50 ML IV ONE (18:32)
[2023-09-29] MEDS: CALCIUM GLUC 1,000mg/50ml-NS 50 ML IV ONE (18:32)
[2023-09-29] MEDS: FUROSEMIDE 20 MG/2 ML VIAL IV ONE (18:32)
[2023-09-29 18:39] VITALS: PULSE 81; RESP 19; O2SAT 98
[2023-09-29 19:30] VITALS: PULSE 87; RESP 19; O2SAT 97
[2023-09-29] MEDS ORDERED: ONDANSETRON HCL 4 MG/2 ML VIAL IV PRN (21:00)
[2023-09-29] MEDS: SODIUM CHLORIDE 0.9% 1,000 ML IV SCH (21:00)
[2023-09-29] MEDS ORDERED: DOCUSATE SOD 100 MG CAP PO PRN (21:00)
[2023-09-29] MEDS ORDERED: IBUPROFEN 600 MG TAB PO PRN (21:00)
[2023-09-29] MEDS ORDERED: MORPHINE SULFATE INJ 2 MG/ml SYRG IV PRN (21:15)
[2023-09-29] MEDS ORDERED: NITROGLYCERIN 0.4 MG SL TAB SL PRN (21:15)
[2023-09-29] MEDS ORDERED: LORazepam 2MG/ML-1ML VIAL IV PRN (21:15)
[2023-09-30 01:13] LABS: Chloride 65 mmol/L (98-107); Potassium 4.2 mmol/L (3.5-5.1)
[2023-09-30 01:14] LABS: Anion Gap 24 (5-15); Calcium 7.5 mg/dL (8.7-10.4); Carbon Dioxide 29 mmol/L (20-30)
[2023-09-30 01:19] LABS: Glucose 96 mg/dL (74-106)
[2023-09-30 01:27] LABS: BUN/Creatinine Ratio 39.8 (10.0-20.0)
[2023-09-30 01:35] LABS: Blood Urea Nitrogen 207 mg/dL (9-23); Sodium 118 mmol/L (136-145)
[2023-09-30] MEDS: SODIUM CHL 3% 500 ML IV STA (02:00)
[2023-09-30 07:15] LABS: Basophils # (auto) 0 10 ^3/uL (0-0.2); Basophils % (auto) 0.1 % (0.0-2.0); Eosinophils # (auto) 0 10 ^3/uL (0-0.8); Eosinophils % (auto) 0.1 % (0.0-7.0); Hematocrit 45.9 % (41.0-53.0); Hemoglobin 16.5 g/dL (13.5-17.5); Lymphocytes # (auto) 0.2 10 ^3/uL (0.4-5.4); Lymphocytes % (auto) 2.4 % (10.0-50.0); Mean Corpuscular Hemoglobin 29.2 pg (28.0-32.0); Mean Corpuscular Volume 81.2 fL (80.0-100.0); Monocytes # (auto) 0.9 10 ^3/uL (0-1.3); Monocytes % (auto) 8.4 % (0.0-12.0); Nucleated Red Blood Cells % 0.1 %; Red Blood Cells 5.66 10^6/uL (4.5-5.90); Red Cell Distribution Width 15.8 % (11.8-14.3); White Blood Cell 10.1 10^3/uL (4.4-10.8)
[2023-09-30 07:29] LABS: Alanine Aminotransferase 133 U/L (7-40); Albumin 4.9 g/dL (3.2-4.8); Alkaline Phosphatase 113 U/L (46-116); Anion Gap 16 (5-15); Aspartate Aminotransferase 280 U/L (13-40); Calcium 7.9 mg/dL (8.5-10.1); Carbon Dioxide 34 mmol/L (20-30); Chloride 70 mmol/L (98-107); Glucose 101 mg/dL (74-106); Sodium 120 mmol/L (136-145); Total Protein 8.4 g/dL (5.7-8.2)
[2023-09-30 07:37] LABS: BUN/Creatinine Ratio 49.2 (10.0-20.0)
[2023-09-30 07:50] LABS: Blood Urea Nitrogen 189 mg/dL (9-23)
[2023-09-30 08:00] VITALS: PULSE 94; RESP 13; O2SAT 93
[2023-09-30] MEDS: DESMOPRESSIN ACET 4 MCG/1 ML AMPULE IV ONE (09:22)
[2023-09-30] MEDS: D5W 5% 1,000 ML IV SCH ×2 (09:22→22:59)
[2023-09-30] MEDS: cefTRIAXone 1GM/50ML D5W 50 ML IV SCH (09:23)
[2023-09-30 10:57] LABS: Lipase 125 U/L (12-53)
[2023-09-30 10:58] LABS: Amylase 847 U/L (30-118)
[2023-09-30 11:19] LABS: Creatine Kinase IFCC > 39000 U/L (46-171)
[2023-09-30 11:56] LABS: Erythrocyte Sedimentation Rate 48 mm/hr (0-20)
[2023-09-30 12:12] LABS: CRP High Sensitivity 16.64 mg/dL (<1.0)
[2023-09-30 19:00] VITALS: BP 158/93; PULSE 95; RESP 20; TEMP 97.3; O2SAT 95
[2023-09-30 20:00] VITALS: PULSE 95; PULSE 96; RESP 20
[2023-09-30] MEDS ORDERED: D5W 5% 1,000 ML IV SCH (20:30)
[2023-09-30 21:00] VITALS: BP_SYST 150; BP_SYST 160; BP_DIAS 96; PULSE 99; RESP 20; TEMP 97.8; O2SAT 98
[2023-09-30] MEDS ORDERED: SODIUM BICARB 50mEq/50ml Vial 50 ML in SODIUM CHLORIDE 0.9% 1,000 ML IV SCH (22:15)
[2023-09-30 22:57] VITALS: BP 158/93; PULSE 104; PULSE 95; RESP 20; TEMP 97.3; O2SAT 95
[2023-10-01] VITALS (8 sets, daily range): BP systolic 133–156; BP diastolic 80–106; PULSE 96–110; RESP 12–18; TEMP 97.5–98.1; O2SAT 95–100
[2023-10-01 05:49] LABS: Alanine Aminotransferase 121 U/L (7-40); Albumin 4.9 g/dL (3.2-4.8); Alkaline Phosphatase 120 U/L (46-116); Amylase 1395 U/L (30-118); Anion Gap 13 (5-15); Aspartate Aminotransferase 190 U/L (13-40); BUN/Creatinine Ratio 89.7 (10.0-20.0); Calcium 10.3 mg/dL (8.7-10.4); Carbon Dioxide 36 mmol/L (20-30); Chloride 73 mmol/L (98-107); Glucose 139 mg/dL (74-106); Lipase 370 U/L (12-53); Potassium 3.8 mmol/L (3.5-5.1); Sodium 122 mmol/L (136-145)
[2023-10-01 05:50] LABS: Bilirubin, Total 1.2 mg/dL (0.2-1.0); Total Protein 8.6 g/dL (5.7-8.2)
[2023-10-01 05:57] LABS: Blood Urea Nitrogen 148 mg/dL (9-23)
[2023-10-01 06:06] LABS: Basophils # (auto) 0 10 ^3/uL (0-0.2); Basophils % (auto) 0.2 % (0.0-2.0); Eosinophils # (auto) 0 10 ^3/uL (0-0.8); Eosinophils % (auto) 0.2 % (0.0-7.0); Hematocrit 45.4 % (41.0-53.0); Hemoglobin 16.1 g/dL (13.5-17.5); Lymphocytes # (auto) 0.5 10 ^3/uL (0.4-5.4); Lymphocytes % (auto) 5.1 % (10.0-50.0); Mean Corpuscular Hemoglobin 28.8 pg (28.0-32.0); Mean Corpuscular Hgb Conc. 35.4 g/dL (32.0-36.0); Mean Corpuscular Volume 81.4 fL (80.0-100.0); Monocytes % (auto) 10.4 % (0.0-12.0); Neutrophils # (auto) 8.5 10 ^3/uL (1.6-8.6); Neutrophils % (auto) 84.1 % (37.0-80.0); Nucleated Red Blood Cells % 0.1 %; Red Blood Cells 5.58 10^6/uL (4.5-5.90); Red Cell Distribution Width 15.9 % (11.8-14.3); White Blood Cell 10.1 10^3/uL (4.4-10.8)
[2023-10-01 08:07] LABS: Rheumatoid Arthritis Factor 10.9 IU/mL (<14.0)
[2023-10-01 08:47] LABS: Erythrocyte Sedimentation Rate 47 mm/hr (0-20)
[2023-10-01] MEDS: SODIUM CHLORIDE 0.9% 1,000 ML IV SCH (16:46)
[2023-10-02] VITALS (8 sets, daily range): BP systolic 127–164; BP diastolic 74–100; PULSE 99–120; RESP 13–20; TEMP 97.2–98.6; O2SAT 96–100
[2023-10-02 06:40] LABS: Basophils # (auto) 0 10 ^3/uL (0-0.2); Basophils % (auto) 0.1 % (0.0-2.0); Eosinophils # (auto) 0 10 ^3/uL (0-0.8); Eosinophils % (auto) 0.2 % (0.0-7.0); Hematocrit 46.2 % (41.0-53.0); Hemoglobin 16.3 g/dL (13.5-17.5); Lymphocytes # (auto) 0.7 10 ^3/uL (0.4-5.4); Lymphocytes % (auto) 6.5 % (10.0-50.0); Mean Corpuscular Hemoglobin 29.1 pg (28.0-32.0); Mean Corpuscular Hgb Conc. 35.3 g/dL (32.0-36.0); Mean Corpuscular Volume 82.5 fL (80.0-100.0); Monocytes # (auto) 1.4 10 ^3/uL (0-1.3); Monocytes % (auto) 12.2 % (0.0-12.0); Neutrophils # (auto) 9.1 10 ^3/uL (1.6-8.6); Red Cell Distribution Width 15.5 % (11.8-14.3); White Blood Cell 11.2 10^3/uL (4.4-10.8)
[2023-10-02 06:46] LABS: Alanine Aminotransferase 99 U/L (7-40); Albumin 4.8 g/dL (3.2-4.8); Alkaline Phosphatase 136 U/L (46-116); Amylase 1027 U/L (30-118); Anion Gap 9 (5-15); Aspartate Aminotransferase 128 U/L (13-40); BUN/Creatinine Ratio 85.2 (10.0-20.0); Calcium 10.4 mg/dL (8.5-10.1); Carbon Dioxide 40 mmol/L (20-30); Chloride 81 mmol/L (98-107); Glucose 99 mg/dL (74-106); LDL Cholesterol 73 mg/dL (< 100); Potassium 3.3 mmol/L (3.5-5.1); Sodium 130 mmol/L (136-145); Triglycerides 196 mg/dL (< 150)
[2023-10-02 06:47] LABS: Bilirubin, Total 1.1 mg/dL (0.2-1.0); Cholesterol 150 mg/dL (< 200); HDL Cholesterol 40 mg/dL (40-59); Total Protein 8.2 g/dL (5.7-8.2)
[2023-10-02 07:03] LABS: Blood Urea Nitrogen 104 mg/dL (9-23)
[2023-10-02 07:39] LABS: Lipase 450 U/L (12-53)
[2023-10-02] MEDS: POTASSIUM CHL 20 Meq TABLET PO ONE (12:25)
[2023-10-03] VITALS (9 sets, daily range): BP systolic 137–163; BP diastolic 81–103; PULSE 85–119; RESP 16–18; TEMP 97.4–98.3; O2SAT 99–100
[2023-10-03] MEDS: LABETALOL HCL 5 MG/ML 4ML SYRINGE IV PRN ×2 (05:03→20:14)
[2023-10-03 05:59] LABS: Basophils # (auto) 0 10 ^3/uL (0-0.2); Basophils % (auto) 0.2 % (0.0-2.0); Eosinophils # (auto) 0 10 ^3/uL (0-0.8); Eosinophils % (auto) 0.3 % (0.0-7.0); Hematocrit 42.2 % (41.0-53.0); Hemoglobin 14.4 g/dL (13.5-17.5); Lymphocytes # (auto) 1.1 10 ^3/uL (0.4-5.4); Lymphocytes % (auto) 7.5 % (10.0-50.0); Mean Corpuscular Hemoglobin 28.4 pg (28.0-32.0); Mean Corpuscular Volume 83.4 fL (80.0-100.0); Monocytes # (auto) 1.2 10 ^3/uL (0-1.3); Monocytes % (auto) 8.4 % (0.0-12.0); Neutrophils # (auto) 11.8 10 ^3/uL (1.6-8.6); Neutrophils % (auto) 83.6 % (37.0-80.0); Red Blood Cells 5.06 10^6/uL (4.5-5.90); Red Cell Distribution Width 15.3 % (11.8-14.3); White Blood Cell 14.1 10^3/uL (4.4-10.8)
[2023-10-03 06:17] LABS: Alanine Aminotransferase 81 U/L (7-40); Albumin 4.3 g/dL (3.2-4.8); Alkaline Phosphatase 134 U/L (46-116); Anion Gap 9 (5-15); Aspartate Aminotransferase 93 U/L (13-40); Calcium 10.1 mg/dL (8.5-10.1); Carbon Dioxide 33 mmol/L (20-30); Creatine Kinase IFCC 1234 U/L (46-171); Glucose 94 mg/dL (74-106); Potassium 3.7 mmol/L (3.5-5.1); Sodium 133 mmol/L (136-145)
[2023-10-03 06:18] LABS: Bilirubin, Total 1.1 mg/dL (0.2-1.0); Total Protein 7.4 g/dL (5.7-8.2)
[2023-10-03 06:20] LABS: Blood Urea Nitrogen 58 mg/dL (9-23); Chloride 91 mmol/L (98-107)
[2023-10-03 07:09] LABS: Uric Acid 14.1 mg/dL (3.7-9.2)
[2023-10-03 07:47] LABS: Erythrocyte Sedimentation Rate 34 mm/hr (0-20)
[2023-10-03 09:35] LABS: Hepatitis B Core Total AB Negative (Negative)
[2023-10-03 13:49] LABS: Hepatitis A Total Antibody Positive (Negative); Hepatitis B Surface Antibody Negative (Negative); Hepatitis B Surface Antigen Negative (Negative); Hepatitis C Antibody Negative (Negative)
[2023-10-03 16:07] LABS: Aldolase 10.3 U/L (3.3-10.3)
[2023-10-03 17:07] LABS: Antimyeloperoxidase (MPO) Ab <0.2 units (0.0-0.9); Antiproteinase 3 (PR-3) Ab <0.2 units (0.0-0.9)
[2023-10-03] MEDS: SODIUM CHLORIDE 0.9% 1,000 ML IV SCH (19:30)
[2023-10-04] VITALS (9 sets, daily range): BP systolic 123–157; BP diastolic 74–93; PULSE 98–117; RESP 16–20; TEMP 97.2–98.4; O2SAT 96–100
[2023-10-04 06:38] LABS: Anion Gap 11 (5-15); Carbon Dioxide 31 mmol/L (20-30); Chloride 92 mmol/L (98-107); Potassium 3.5 mmol/L (3.5-5.1); Sodium 134 mmol/L (136-145)
[2023-10-04 06:43] LABS: BUN/Creatinine Ratio 31.2 (10.0-20.0); Glucose 88 mg/dL (74-106)
[2023-10-04 07:11] LABS: Blood Urea Nitrogen 34 mg/dL (9-23)
[2023-10-04 08:06] LABS: Complement C3 171 mg/dL (82-167)
[2023-10-04 12:07] LABS: Kappa Lite Chain Free Serum 45.7 mg/L (3.3-19.4)
[2023-10-04 13:07] LABS: Cytoplasmic (C-ANCA) <1:20 titer (Neg:<1:20); Perinuclear (P-ANCA) <1:20 titer (Neg:<1:20)
[2023-10-04 14:06] LABS: Immunoglobulin A 245 mg/dL (90-386); Immunoglobulin G, Serum 1141 mg/dL (603-1613); Immunoglobulin M 143 mg/dL (20-172)
[2023-10-04] MEDS: METOPROLOL TARTRATE 25 MG TAB PO SCH (22:07)
[2023-10-05 01:00] VITALS: BP 130/70; PULSE 130; RESP 70; TEMP 98.4; O2SAT 99
[2023-10-05 05:00] VITALS: BP 143/80; PULSE 143; RESP 80; TEMP 98.6; O2SAT 100
[2023-10-05 07:01] LABS: Chloride 97 mmol/L (98-107); Potassium 3.5 mmol/L (3.5-5.1); Sodium 134 mmol/L (136-145)
[2023-10-05 07:02] LABS: Anion Gap 3 (5-15); Carbon Dioxide 34 mmol/L (20-30)
[2023-10-05 07:07] LABS: BUN/Creatinine Ratio 26.7 (10.0-20.0); Blood Urea Nitrogen 28 mg/dL (9-23); Glucose 117 mg/dL (74-106)
[2023-10-05 08:00] VITALS: PULSE 106; PULSE 109; RESP 18
[2023-10-05 09:00] VITALS: BP 125/71; PULSE 109; RESP 18; TEMP 98.6; O2SAT 98
[2023-10-05] MEDS ORDERED: MET25T PO (10:03)
[2023-10-05] MEDS ORDERED: CEPH250C PO (10:03)
[2023-10-05 11:45] VITALS: BP 125/71; PULSE 109
[2023-10-05] MEDS: ALLOPURINOL 100 MG TAB PO SCH (12:15)
[2023-10-05] MEDS: POTASSIUM EFFERVESENT TAB 25 MEQ PO ONE (12:33)
[2023-10-05 13:44] LABS: Magnesium 1.5 mg/dL (1.6-2.6); Phosphorus 1.8 mg/dL (2.4-5.1)
[2023-10-06 07:06] LABS: Albumin 2.9 g/dL (2.9-4.4); Alpha-1-Globulin 0.6 g/dL (0.0-0.4); Alpha-2-Globulin 1.4 g/dL (0.4-1.0); Gamma Globulin 1.2 g/dL (0.4-1.8); Globulin Total 4.5 g/dL (2.2-3.9); Protein Total Serum 7.4 g/dL (6.0-8.5)
== END 2023-10-05 13:15 | disposition home or self-care (01) | DRG 351 ==
LOC: ER 12:46 → EDBD 12:46 → ER 15:21 → TELE 21:10 → TELE-CENTR 09-30 19:00
PROVIDERS: ADMIT Internal Medicine; ATTEND Internal Medicine
DX: M62.82 Rhabdomyolysis (principal); N17.0 Acute kidney failure with tubular necrosis; K85.90 Acute pancreatitis without necrosis or infection, unspecified; E87.1 Hypo-osmolality and hyponatremia; E86.0 Dehydration; F12.10 Cannabis abuse, uncomplicated; R74.8 Abnormal levels of other serum enzymes; N18.9 Chronic kidney disease, unspecified; E87.5 Hyperkalemia; Z79.899 Other long term (current) drug therapy; E87.6 Hypokalemia; E79.0 Hyperuricemia without signs of inflammatory arthritis and tophaceous disease
CPT/HCPCS: 36415; 71045; 74176; 76705; 76775; 80048; 80053; 80061; 80307; 81001; 82085; 82150; 82306; 82550; 82784; 83036; 83520; 83521; 83690; 83735; 83930; 83935; 83970; 84100; 84155; 84165; 84295; 84300; 84443; 84550; 85025; 85652; 86141; 86160; 86256; 86334; 86335; 86431; 86703; 86704; 86706; 86708; 86803; 87340; 94640; G0378; J3490

== ENCOUNTER 2023-10-07 23:51 | Emergency (ER) | payer MEDICAID ==
[~2023-10-07] VITALS: Ht 170.2 cm; Wt 75.0 kg
[~2023-10-07 23:51] MED LIST: CEPH250C PO; MET25T PO
[2023-10-08 00:15] VITALS: BP 128/88; PULSE 116; RESP 20; O2SAT 98
[2023-10-08 00:30] LABS: Basophils # (auto) 0 10 ^3/uL (0-0.2); Basophils % (auto) 0.2 % (0.0-2.0); Eosinophils # (auto) 0.1 10 ^3/uL (0-0.8); Eosinophils % (auto) 0.6 % (0.0-7.0); Hematocrit 29.4 % (41.0-53.0); Lymphocytes # (auto) 1.6 10 ^3/uL (0.4-5.4); Lymphocytes % (auto) 13.7 % (10.0-50.0); Mean Corpuscular Hemoglobin 28.4 pg (28.0-32.0); Mean Corpuscular Hgb Conc. 33.9 g/dL (32.0-36.0); Mean Corpuscular Volume 83.7 fL (80.0-100.0); Monocytes # (auto) 0.5 10 ^3/uL (0-1.3); Monocytes % (auto) 4.1 % (0.0-12.0); Neutrophils # (auto) 9.5 10 ^3/uL (1.6-8.6); Neutrophils % (auto) 81.4 % (37.0-80.0); Red Blood Cells 3.52 10^6/uL (4.5-5.90); Red Cell Distribution Width 15.3 % (11.8-14.3); White Blood Cell 11.7 10^3/uL (4.4-10.8)
[2023-10-08 00:46] LABS: INR 1.08 (0.9-1.15); Partial Thromboplastin Time 24.3 SEC (24.5-34.5); Prothrombin Time 11.4 sec (9.3-11.8)
[2023-10-08 00:50] LABS: Alanine Aminotransferase 57 U/L (7-40); Albumin 3.9 g/dL (3.2-4.8); Alkaline Phosphatase 145 U/L (46-116); Anion Gap 8 (5-15); Aspartate Aminotransferase 43 U/L (13-40); BUN/Creatinine Ratio 15.4 (10.0-20.0); Blood Urea Nitrogen 16 mg/dL (9-23); Calcium 9.8 mg/dL (8.7-10.4); Carbon Dioxide 31 mmol/L (20-30); Chloride 101 mmol/L (98-107); Glucose 79 mg/dL (74-106); Magnesium 1.4 mg/dL (1.6-2.6); Potassium 2.8 mmol/L (3.5-5.1); Sodium 140 mmol/L (136-145)
[2023-10-08 00:51] LABS: Bilirubin, Total 0.4 mg/dL (0.2-1.0); Total Protein 6.5 g/dL (5.7-8.2)
[2023-10-08] MEDS: POTASSIUM CHL 20 Meq TABLET PO ONE (01:40)
[2023-10-08 02:53] VITALS: PULSE 108
== END 2023-10-08 04:23 | disposition left against medical advice (07) ==
LOC: ER 23:51 → EDBD 23:51 → EDUNIT# 23:51 → ER 10-08 04:23
DX: I51.7 Cardiomegaly (principal); E87.6 Hypokalemia; R07.89 Other chest pain; R00.0 Tachycardia, unspecified; N18.9 Chronic kidney disease, unspecified; F15.90 Other stimulant use, unspecified, uncomplicated; Z79.899 Other long term (current) drug therapy
CPT/HCPCS: 36415; 71045; 80053; 83735; 83880; 84484; 85025; 85610; 85730; 93005

== ENCOUNTER 2024-04-09 20:53 | Emergency (ER) | payer MEDICAID ==
[~2024-04-09] VITALS: Ht 177.8 cm; Wt 72.7 kg
[2024-04-09 21:00] VITALS: BP 128/78; PULSE 120; RESP 20; O2SAT 99
--- NOTE | 2024-04-09 21:11 | ED.PDOC ---
History of Present Illness HPI Comments 23-year-old male with PMHx CKF brought in by EMS presents with a chief complaint of nausea, vomiting, and diarrhea x 8 days. Patient states that he has been sick for the past 8 days. Patient reports that he has not been able to keep down any liquids or solids. Patient is in no acute distress at this time. No active vomiting at this time. No other symptoms or modifying factors present at this time. Chief Complaint: Nausea/Vomiting Time Seen by MD: 21:00 Primary Care Provider: UNKNOWN Reviewed Notes: Medications, Allergies Allergies: Coded Allergies: NO KNOWN ALLERGIES (Unverified , 04/25/23) Home Meds Active Scripts Cephalexin (KEFLEX CAPSULE) 250 Mg Cp, 2 CAP PO BID for 5 Days, #20 CAP Prov:ESTEE SALCIDO DO 10/05/23 Metoprolol Tartrate (Lopressor) 25 Mg Tb, 12.5 MG PO BID for 30 Days, #30 TAB 6 Refills Prov:ESTEE SALCIDO DO 10/05/23 Information Source: Patient, Emergency Med Personnel Mode of Arrival: EMS Severity: Moderate Timing: Days Duration: Since onset Prehospital treatment: None Past Medical History PAST MEDICAL HISTORY: CKF Surgical History: Denies all surgeries Family History Family History: Reviewed,noncontributory to illness Social History Smoker: Non-Smoker Alcohol: Denies ETOH Use Drugs: Marijuana Lives In: Home Constitutional: denies: chills, diaphoresis, fatigue, fever, malaise, sweats, weakness, others EENTM: denies: blurred vision, double vision, ear bleeding, ear discharge, ear drainage, ear pain, ear ringing, eye pain, eye redness, hearing loss, mouth pain, mouth swelling, nasal discharge, nose bleeding, nose congestion, nose carol n, photophobia, tearing, throat pain, throat swelling, voice changes, others Respiratory: denies: cough, hemoptysis, orthopnea, SOB at rest, shortness of breath, SOB with excertion, stridor, wheezing, others Cardiovascular: denies: chest pain, dizzy spells, diaphoresis, Dyspnea on exertion, edema, irregular heart beat, left arm pain, lightheadedness, palpitations, PND, syncope, others Gastrointestinal: reports: diarrhea, nausea, vomiting; denies: abdomen distended, abdominal pain, blood streaked bowels, constipated, dysphagia, difficulty swallowing, hematemesis, melena, poor appetite, poor fluid intake, rectal bleeding, rectal pain, others Genitourinary: denies: burning, dysuria, flank pain, frequency, hematuria, incontinence, penile discharge, penile sore, pain, testicle pain, testicle swelling, urgency, others Neurological: denies: dizziness, fainting, headache, left sided numbness, left sided weakness, numbness, paresthesia, pre-existing deficit, right sided num bness, right sided weakness, seizure, speech problems, tingling, tremors, weakness, others Musculoskeletal: denies: back pain, gout, joint pain, joint swelling, muscle pain, muscle stiffness, neck pain, others Integumetry: denies: bruises, change in color, change in hair/nails, dryness, laceration, lesions, lumps, rash, wounds, others Allergic/Immunocompromised: denies: Difficulty Healing, Frequent Infections, Hives, Itching, others Hematologic/Lymphatic: denies: anemia, blood clots, easy bleeding, easy bruising, swollen glands, others Endocrine: denies: excessive hunger, excessive sweating, excessive thirst, excessive urination, flushing, intolerance to cold, intolerance to heat, unexplained weight gain, unexplained weight loss, others Psychiatric: denies: anxiety, bipolar disorder, depression, hopeless, panic disorder, schizophrenia, sleepless, suicidal, others All Other Systems: Reviewed and Negative Physical Exam General Appearance: Mild Distress, Normal HEENT: Normal ENT Inspection, Pharynx Normal, TMs Normal Neck: Full Range of Motion, Non-Tender, Normal, Normal Inspection Respiratory: Chest Non-Tender, Lungs Clear, No Accessory Muscle Use, No Respiratory Distress, Normal Breath Sounds Cardiovascular: No Edema, No JVD, No Murmur, No Gallop, Normal Peripheral Pulses, Regular Rate/Rhythm Breast Exam: Deferred Gastrointestinal: Diffuse, No Organomegaly, Non Tender, No Pulsatile Mass, Normal Bowel Sounds, Soft, Tenderness Genitalia: Deferred Pelvic: Deferred Rectal: Deferred Extremities: No calf tenderness, Normal capillary refill, Normal inspection, Normal range of motion, Non-tender, No pedal edema Musculoskeletal : Apperance: Normal Neurologic: Alert, squad leader II-XII nml as Tested, No Motor Deficits, Normal Affect, Normal Mood, No Sensory Deficits Cerebellar Function: Normal Reflexes: Normal Skin: Dry, Normal Color, Warm Lymphatic: No Adenopathy Was a procedure done? Was a procedure done?: No Differential Dx Considerations may include: Substance abuse GERD gastritis gastroenteritis acute abdomen X-Ray, Labs, Meds, VS Vital Signs Date Time Temp Pulse Resp B/P (MAP) Pulse Ox O2 Delivery O2 Flow Rate FiO2 04/09/24 21:00 96.1 120 20 128/78 (95) 99 The patient refused labs and radiographic studies. Then he eloped. Time of 1ST Reevaluation: 21:30 Reevaluation 1ST: Unchanged Patient Education/Counseling: Diagnosis, Treatment, Prognosis Family Education/Counseling: No Family Present Departure 1 Departure Time of Disposition: 01:13 Impression: Primary Impression: Cyclic vomiting syndrome Additional Impression: Marijuana abuse Disposition: 07 LEFT AWOL/ELOPED Condition: Guarded Additional Instructions: Reassessed patient, vital signs stable. Denies any new symptoms. Patient is able to tolerate PO and ambulate/be mobile at their baseline without concern. Risks and benefits of all medications given or prescribed, if any, discussed. All lab work, imaging and diagnostic studies were reviewed by me. The patient was counseled extensively on my clinical impression, diagnosis, expected course of the disease, and plan, including their follow-up care. Will discharge patient. Patient instructed to follow up with Primary Care Physician within 24-48 hours. Strict return precautions given for further exacerbation of symptoms or for new symptoms. The patient was given the opportunity to ask questions and all questions were answered by myself and the nursing/tech staff. Patient is in agreement with the care plan. The patient verbally expressed understanding of the discharge instructions, including the reasons to return to the Emergency Department. Critical Care Note Critical Care Time?: No Stability Stability form required: No I personally scribed for PADMA BERRY MD ([email or web address]) on 04/09/24 at 21:11. Electronically submitted by Anton Garner ([email or web address]). PADMA BERRY MD Apr 09, 2024 21:11
[2024-04-09] MEDS ORDERED: SODIUM CHLORIDE 0.9% 1,000 ML IV ONE ×2 (21:30)
[2024-04-09] MEDS ORDERED: ONDANSETRON HCL 4 MG/2 ML VIAL IV ONE (21:30)
[2024-04-09] MEDS ORDERED: HALOPERIDOL LACTATE 5 MG/ML INJ VIAL IM ONE (21:30)
== END 2024-04-10 01:12 | disposition left against medical advice (07) ==
LOC: ER 20:53 → EDBD 20:53 → ER 04-10 01:12
DX: R11.15 Cyclical vomiting syndrome unrelated to migraine (principal); F12.10 Cannabis abuse, uncomplicated; N18.9 Chronic kidney disease, unspecified; Z79.899 Other long term (current) drug therapy